=== PATIENT | female | born 1965 | race Two or more races ===

== ENCOUNTER 2016-11-12 07:58 | Day surgery (SDC) | payer OTHER ==
[~2016-11-12] VITALS: Ht 170.2 cm; Wt 72.6 kg
[2016-11-12] MEDS ORDERED: CELECOXIB 100 MG CAPSULE ONE (08:15)
[2016-11-12] MEDS ORDERED: KETOROLAC TROMETHAMINE INJ 30 MG/ML VIAL ONE (08:15)
[2016-11-12] MEDS ORDERED: IV LR 1000 ML 1,000 ML ONE (08:16)
[2016-11-12] MEDS ORDERED: ACETAMINOPHEN 325 MG TABLET ONE (08:16)
[2016-11-12] MEDS ORDERED: oxyCODONE HCL SR 20MG TAB.SR.12H PO ONE (08:16)
[2016-11-12] MEDS ORDERED: NEEDLELESS EST SET LARGE BORE 1 EA INFUS.SET MC ONE (08:17)
[2016-11-12] MEDS ORDERED: IV SET PRIMARY 1 EA INFUS.SET MC ONE (08:17)
[2016-11-12] MEDS ORDERED: LIDOCAINE 1%-EPI 1:100,000 20 ML VIAL ONE (08:32)
[2016-11-12] MEDS ORDERED: BUPIVACAINE 0.5 % PF 150 MG/30 ML VIAL ONE (08:32)
[2016-11-12] MEDS ORDERED: methylPREDNISolone ACETATE 40 MG/ML VIAL ONE (08:32)
[2016-11-12] MEDS ORDERED: HEMOSTATIC MATRIX 10 ML 1 EACH PAD MC ONE (08:33)
[2016-11-12] MEDS ORDERED: BACITRACIN 50000 UNITS/VIAL ONE (08:33)
[2016-11-12] MEDS ORDERED: HEPARIN SODIUM, PORCINE 5000 UNITS/1 ML VIAL ONE (08:54)
[2016-11-12] MEDS ORDERED: CEFAZOLIN 1 GM ONE (08:54)
[2016-11-12] MEDS ORDERED: METHYLENE BLUE AMP (1ML) 1 ML AMPUL ONE (08:55)
[2016-11-12] MEDS ORDERED: methylPREDNISolone ACETATE 80 MG/ML VIAL ONE (09:54)
[2016-11-12] MEDS ORDERED: ROCURONIUM BROMIDE 50 MG/5 ML ONE (10:02)
[2016-11-12] MEDS ORDERED: FENTANYL PF 100MCG/2ML AMPUL ONE (10:02)
[2016-11-12] MEDS ORDERED: MIDAZOLAM HCL 2 MG/2ML VIAL ONE (10:02)
[2016-11-12] MEDS ORDERED: ONDANSETRON HCL/PF 4 MG/2 ML VIAL ONE ×2 (12:20→13:32)
[2016-11-12] MEDS ORDERED: HYDROMORPHONE 1 MG/1 ML DISP.SYRIN ONE (12:27)
[2016-11-12] MEDS ORDERED: HYDROCODONE/APAP 10/325MG 1 EA TABLET ONE (13:24)
== END 2016-11-12 14:35 | disposition home or self-care (01) ==
LOC: DS 07:58
PROVIDERS: ATTEND Specialist
DX: M51.16 Intervertebral disc disorders with radiculopathy, lumbar region (principal); M48.07 Spinal stenosis, lumbosacral region
CPT/HCPCS: 36415; 72020-TC; 82962-TC; 86850-TC; 86921-TC; 88304-TC; 88305-TC; 88311-TC; A6209; A6402; J0690; J1030; J1040; J1170; J1644; J1885; J2250; J2405; J2704; J2710; J3010; J3490; J7120; Q9968; Z7610

== ENCOUNTER 2017-08-05 16:01 | Emergency (ER) | payer OTHER ==
[~2017-08-05] VITALS: Ht 170.2 cm; Wt 73.0 kg
--- NOTE | 2017-08-05 16:10 | NUR ---
PT SENT BY DR. SULTANA FOR ULTRASOUND ON RUE TO R/O DVT. S/P WRIST CYST REMOVAL SX. VSS. SAFETY AND COMFORT MEASURES PROVIDED. PA AT FOR EVAL. WILL MONITOR.
--- NOTE | 2017-08-05 16:25 | NUR ---
MELIA AT BS.
[2017-08-05 17:39] VITALS: BP 141/88
--- NOTE | 2017-08-05 17:39 | NUR ---
Patient discharged to home in stable condition. Written and verbal after care instructions given. Patient verbalizes understanding of instruction.
== END 2017-08-05 17:40 | disposition home or self-care (01) ==
LOC: ER 16:04
DX: M79.89 Other specified soft tissue disorders (principal); F41.9 Anxiety disorder, unspecified; I10 Essential (primary) hypertension; E11.9 Type 2 diabetes mellitus without complications; Z88.5 Allergy status to narcotic agent
CPT/HCPCS: 93971; 99284; A4606; Z7610

== ENCOUNTER 2017-10-20 14:42 | Emergency (ER) | payer OTHER ==
[~2017-10-20] VITALS: Ht 170.2 cm; Wt 76.7 kg
[2017-10-20] MEDS ORDERED: KETOROLAC TROMETHAMINE INJ 30 MG/ML VIAL ONE (15:17)
[2017-10-20] MEDS ORDERED: TRAMADOL HCL 50 MG TABLET ONE (15:17)
[2017-10-20] MEDS ORDERED: ONDANSETRON 4 MG TAB.RAPDIS ONE (15:17)
[2017-10-20] MEDS ORDERED: KETOROLAC TROMETHAMINE INJ 60 MG/2 ML VIAL IM ONE (15:30)
[2017-10-20] MEDS ORDERED: ONDANSETRON 4 MG TAB.RAPDIS SL ONE (15:30)
[2017-10-20] MEDS ORDERED: TRAMADOL HCL 50 MG TABLET PO ONE (15:30)
[2017-10-20 16:39] VITALS: BP 122/76
== END 2017-10-20 16:40 | disposition home or self-care (01) ==
LOC: ER 14:43
DX: S22.32XA Fracture of one rib, left side, initial encounter for closed fracture (principal); S70.12XA Contusion of left thigh, initial encounter; I10 Essential (primary) hypertension; E11.9 Type 2 diabetes mellitus without complications; F41.9 Anxiety disorder, unspecified; Z88.5 Allergy status to narcotic agent; W18.39XA Other fall on same level, initial encounter; Y93.89 Activity, other specified; Y92.89 Other specified places as the place of occurrence of the external cause; Y99.8 Other external cause status
CPT/HCPCS: 71100-TC; 73502; 73552; A4606; J1885; Q0162; Z7610